=== PATIENT | female | born 1940 | race Caucasian/White ===

== ENCOUNTER 2019-05-20 18:56 | Inpatient (IN) | payer MEDICARE ==
[~2019-05-20] VITALS: Ht 172.7 cm; Wt 79.5 kg
[~2019-05-20 18:56] MED LIST: ASPI-611 PO; BUPR300T54 PO; CITROCAL; DEME300T2; DIPH-423 PO; FERR325T32 PO; FEXO-62 PO; HYDR-4069 PO; LEVO112T5 PO; METO-395 PO; MULT-342 PO; PANT-47 PO; VALS160T30 PO; ZINC10LO5
[2019-05-20 19:29] LABS: BASOPHILS % (AUTO) 0.1 % (0-1); EOSINOPHILS % (AUTO) 0.3 % (0-6); HEMATOCRIT 35.8 % (35.0-45.0); HEMOGLOBIN 11.8 g/dl (12.0-16.0); LYMPHOCYTES # (AUTO) 0.8 X10'3 (1.1-4.8); LYMPHOCYTES % (AUTO) 6.4 % (21-51); MEAN CORPUSCULAR HEMOGLOBIN 31.7 PG (27.0-31.0); MEAN PLATELET VOLUME 6.4 FL (7.4-10.4); MONOCYTES # (AUTO) 0.4 X10'3 (0-0.9); MONOCYTES % (AUTO) 2.9 % (2-12); NEUTROPHILS # (AUTO) 10.9 X10'3 (1.8-7.7); NEUTROPHILS % (AUTO) 90.3 % (42-75); PLATELET COUNT 399 X10'3 (140-440); RED BLOOD COUNT 3.73 X10'6 (4.20-5.60); WHITE BLOOD COUNT 12.1 X10'3 (4.5-11.0)
[2019-05-20 19:41] LABS: PARTIAL THROMBOPLASTIN TIME 25 SECONDS (22-32)
[2019-05-20 19:48] LABS: ALANINE AMINOTRANSFERASE 22 U/L (12-78); ALBUMIN 2.9 G/DL (3.4-5.0); ALKALINE PHOSPHATASE 53 IU/L (46-116); ANION GAP 8 (8-16); ASPARTATE AMINO TRANSFERASE 3 U/L (10-37); BILIRUBIN,TOTAL 0.3 MG/DL (0.1-1.0); BLOOD UREA NITROGEN 14 MG/DL (7-18); BUN/CREATININE RATIO 10.7 (6.6-38.0); CALCIUM 8.2 MG/DL (8.5-10.1); CHLORIDE 96 MMOL/L (99-107); CREATININE 1.31 MG/DL (0.40-0.90); GLUCOSE 209 MG/DL (70-104); POTASSIUM 4.4 MMOL/L (3.5-5.1); SODIUM 129 MMOL/L (135-145); TOTAL CARBON DIOXIDE 24.7 MMOL/L (24-32); TOTAL PROTEIN 5.7 G/DL (6.4-8.2); TROPONIN I < 0.04 NG/ML (0.0-0.05); eGFR 39 ML/MIN
[2019-05-20 19:58] LABS: CLARITY,URINE CLEAR (Clear); COLOR,URINE YELLOW (Yellow); GLUCOSE, URINE NEGATIVE (Neg); KETONES,URINE NEGATIVE (Neg); LEUKOCYTE ESTERASE ,URINE NEGATIVE (Neg); NITRITES, URINE NEGATIVE (Neg); OCCULT BLOOD,URINE NEGATIVE (Neg); PROTEIN,URINE NEGATIVE (Neg); UROBILINOGEN,URINE 0.2 E.U/dL (0.2-1.0)
[2019-05-20 19:59] LABS: UA COLLECTION TYPE STRAIGHT CATH
[2019-05-20] MEDS ORDERED: normal saline 1000ML IV soln IVB ONE (20:10)
[2019-05-20] MEDS ORDERED: magnesium hydroxide 30ml (MOM) UD suspension PO PRN (21:10)
[2019-05-20] MEDS ORDERED: acetaminophen 325mg tablet PO PRN ×2 (21:10)
[2019-05-20] MEDS ORDERED: potassium CL 10mEq/100ml bag 100 ML IV PRN ×2 (21:10)
[2019-05-20] MEDS ORDERED: ondansetron/PF 4mg/2ml inj IV PRN (21:10)
[2019-05-20] MEDS ORDERED: mag hydrox/Alum hydrox/simeth 30ml oral suspension PO PRN (21:10)
[2019-05-20] MEDS ORDERED: potassium Cl 20 mEq SR tablet PO PRN ×2 (21:10)
[2019-05-20] MEDS ORDERED: magnesium 4gm in 100ml NS 100 ML IV PRN (21:10)
[2019-05-20] MEDS ORDERED: magnesium 2GM in 50ml NS 50 ML IV PRN (21:10)
[2019-05-20] MEDS ORDERED: magnesium Cl slow-release 64mg tablet PO PRN (21:10)
[2019-05-20] MEDS ORDERED: SYN0.088T PO (21:49)
[2019-05-20] MEDS ORDERED: CELE-193 PO (21:49)
[2019-05-20 22:15] VITALS: BP 143/74
--- NOTE | 2019-05-20 22:45 | NUR ---
PT IS UP TO FLOOR VIA GURNEY AND ONE ATTENDANT , TRANSFERRED TO BED VIA SLIDE BOARD AND FOUR ATTENDANTS. VSS, PICS TAKEN OF WOUNDS ON BILATERAL FEET, PT IS NOT VERY RECEPTIVE TO STROKE ASSESSMENT QUESTIONS, STATING "NO" WHEN ASKED TO PERFORM TASKS. PT IS CURSING UNDER HER BREATH, ANNOYED FOR HAVING TO BE HERE. WILL CONTINUE BEST WE CAN.
--- NOTE | 2019-05-21 01:25 | NUR ---
pt states that she had a "purse with cats" at admit. There was no purse at arrival, and we called to ED and they did not see a purse. It is likely that it was left at [facility] when the EMS transported.
--- NOTE | 2019-05-21 01:33 | NUR ---
Pt is refusing to have her blood drawn. will not be able to get the Troponins.
--- NOTE | 2019-05-21 05:07 | NUR ---
Pt is refusing to cooperate with the NIH stroke assessment. will continue to try.
[2019-05-21 06:00] VITALS: BP 179/77
--- NOTE | 2019-05-21 06:12 | NUR ---
Report given to LIAN Garsia.
[2019-05-21 06:28] LABS: BASOPHILS % (AUTO) 0.5 % (0-1); EOSINOPHILS # (AUTO) 0.1 X10'3 (0-0.9); EOSINOPHILS % (AUTO) 1.5 % (0-6); HEMATOCRIT 31.9 % (35.0-45.0); LYMPHOCYTES # (AUTO) 1.3 X10'3 (1.1-4.8); MEAN CORPUSCULAR HEMOGLOBIN 32.6 PG (27.0-31.0); MEAN CORPUSCULAR HGB CONC 34.5 g/dL (33.0-36.5); MEAN CORPUSCULAR VOLUME 94.4 FL (78-98); MEAN PLATELET VOLUME 6.2 FL (7.4-10.4); MONOCYTES # (AUTO) 0.9 X10'3 (0-0.9); MONOCYTES % (AUTO) 10.3 % (2-12); NEUTROPHILS % (AUTO) 71.7 % (42-75); PLATELET COUNT 370 X10'3 (140-440); RED BLOOD COUNT 3.38 X10'6 (4.20-5.60); RED CELL DISTRIBUTION WIDTH 13.8 % (11.5-14.5); WHITE BLOOD COUNT 8.4 X10'3 (4.5-11.0)
--- NOTE | 2019-05-21 06:35 | NUR ---
Problems reprioritized. Patient report given, questions answered & plan of care reviewed with Nanette BEAL.
[2019-05-21 06:51] LABS: ALBUMIN 2.8 G/DL (3.4-5.0); ANION GAP 3 (8-16); BLOOD UREA NITROGEN 11 MG/DL (7-18); BUN/CREATININE RATIO 9.5 (6.6-38.0); CALCIUM 8.6 MG/DL (8.5-10.1); CHLORIDE 100 MMOL/L (99-107); CHOL/HDL RATIO 2.3 (0.00-4.99); CHOLESTEROL 196 MG/DL (0-200); CREATININE 1.16 MG/DL (0.40-0.90); GLUCOSE 89 MG/DL (70-104); HDL CHOLESTEROL 84 MG/DL (35-60); LDL CHOLESTEROL 71 MG/DL (50-100); POTASSIUM 4.5 MMOL/L (3.5-5.1); SODIUM 133 MMOL/L (135-145); TOTAL CARBON DIOXIDE 29.9 MMOL/L (24-32); TRIGLYCERIDES 132 MG/DL (20-135); TROPONIN I < 0.04 NG/ML (0.0-0.05); eGFR 45 ML/MIN
[2019-05-21] MEDS: K and/or MAG REPLACEMENT MC SCH ×2 (08:00→20:00)
[2019-05-21] MEDS ORDERED: CITROCAL SCH (08:00)
--- NOTE | 2019-05-21 09:03 | NUR ---
Paged EEG group pager.Rm [phone], Julee. there is an active order for EEG. Thank you.
--- NOTE | 2019-05-21 09:43 | NUR ---
Unable to perform NIH scale as pt refused to demonstrate and said, "I just want to be left alone." Addendum: 05/21/19 at 0944 by Keny Madera RN Amended: Links added.
--- NOTE | 2019-05-21 09:45 | NUR ---
PAGER ID: [phone] MESSAGE: [id number]. Pt is refusing MRI. Sun [phone]
[2019-05-21] MEDS ORDERED: pneumococcal 23-VAL P-sac vacc 25 mcg/0.5ml vial IMVAC ONE (10:00)
--- NOTE | 2019-05-21 10:29 | NUR ---
Paged Speech Therapist regarding BSS. Rm [id number]. Pt has active BSS order, could you please call me. Thank you
[2019-05-21] MEDS: levoTHYROXINE 175mcg tablet PO SCH (11:47)
[2019-05-21] MEDS: pantoprazole 40mg Tablet.DR PO SCH ×2 (11:47→20:55)
[2019-05-21] MEDS: metoprolol succinate 25mg (24-HOUR) SR. Tablet PO SCH (11:47)
[2019-05-21] MEDS: multivitamins, therapeutics tablet PO SCH (11:47)
[2019-05-21] MEDS: hydrALAZINE 25 MG tablet PO SCH ×2 (11:47→20:55)
[2019-05-21] MEDS: losartan 50mg tablet PO SCH (11:47)
[2019-05-21] MEDS: buPROPion SR 150mg tablet PO SCH ×2 (11:48→20:55)
[2019-05-21] MEDS: enoxaparin 40mg/0.4ml syringe SQ SCH (11:49)
--- NOTE | 2019-05-21 12:20 | NUR ---
Patient is refusing MRI and refusing to have new PIV placed at this time. Field Start is patent, will continue to monitor. has been paged regarding the MRI.
--- NOTE | 2019-05-21 12:23 | NUR ---
promotional table spacer PAGER ID: [phone] MESSAGE: Walter [id number]. FYI, Patient still refusing MRI. Sun [phone]
[2019-05-21] MEDS ORDERED: aspirin 325mg tablet PO ONE (15:55)
--- NOTE | 2019-05-21 16:04 | NUR ---
PRESSURE ULCER EDUCATION: DEFINITION: A pressure ulcer is an area of skin that breaks down when you stay in one position too long. The constant pressure against the skin reduces the blood flow to that area and the affected tissue dies. CAUSES: "Being bedridden or in a wheelchair "Fragile skin "Having a chronic condition, such as diabetes or vascular disease "Inability to move certain parts of your body without assistance "Older age "Incontinence of urine or stool SYMPTOMS: "A reddened area that DOES NOT turn white when pressed on - this can be the beginning of a pressure ulcer "A blister, deep sore or a crater - these can be advanced pressure ulcers FIRST AID: "Relieve the pressure on this area "Keep the area clean and dry "Call your primary doctor if you see any of the above symptoms "DO NOT massage the area "DO NOT use a donut shaped or ring shaped pillow- these actually interfere with the blood flow and cause complications PREVENTION: "Check for pressure ulcers everyday "Change position at least every two hours to relieve pressure "Use items that help relieve pressure- pillows, sheepskin, foam padding, and powders. "Keep skin clean and dry "Eat healthy well balanced meals "Exercise daily IF YOU SEE ANY OF THESE SYMPTOMS WHILE IN THE HOSPITAL - TELL YOUR NURSE IMMEDIATELY. IF YOU SEE ANY OF THESE SYMPTOMS WHILE AT HOME OR HAVE ANY QUESTIONS OR CONCERNS ABOUT PRESSURE ULCERS - CALL YOUR PRIMARY DOCTOR IMMEDIATELY. Addendum: 05/21/19 at 1605 by Muna Moise RN Amended: Links added.
--- NOTE | 2019-05-21 16:05 | NUR ---
Spoke with Dr. Melo regarding the patient refusing to have an MRI. Dr. Melo gave verbal orders to start aspirin and atorvastatin. Patient refused after speaking with the MD. Patient is still refusing to have the PIV replaced. Will continue to monitor.
[2019-05-21] MEDS: atorvastatin 20mg tablet PO SCH (16:22)
[2019-05-21 18:00] VITALS: BP 126/50
--- NOTE | 2019-05-21 18:10 | NUR ---
Problems reprioritized. Patient report given, questions answered & plan of care reviewed with Zara BEAL.
[2019-05-21] MEDS: nystatin 15 GM powder TP SCH (20:55)
[2019-05-21 22:00] VITALS: BP 158/56
[2019-05-22 06:00] VITALS: BP 160/61
--- NOTE | 2019-05-22 06:05 | NUR ---
Patient in room ORTHO 4015. I have received report from LIAN Zuñiga and had the opportunity to ask questions and assume patient care. Assessment of patient completed. Patient refusing labs and any treatment. Will let hospitalist know.
--- NOTE | 2019-05-22 06:44 | NUR ---
Problems reprioritized. Patient report given, questions answered & plan of care reviewed with LIAN GOLDEN.
--- NOTE | 2019-05-22 07:14 | NUR ---
PAGER ID: [phone] MESSAGE: LIEN Thompson: Patient Mark Ladd rm 15B, ortho/neuro, refusing labs. Vanessa Jarquin, RN [phone].
[2019-05-22] MEDS: hydrALAZINE 25 MG tablet PO SCH (07:51)
[2019-05-22] MEDS: atorvastatin 20mg tablet PO SCH (07:52)
[2019-05-22] MEDS: losartan 50mg tablet PO SCH (07:52)
[2019-05-22] MEDS: buPROPion SR 150mg tablet PO SCH (07:53)
[2019-05-22] MEDS: multivitamins, therapeutics tablet PO SCH (07:53)
[2019-05-22] MEDS: pantoprazole 40mg Tablet.DR PO SCH (07:53)
[2019-05-22] MEDS: levoTHYROXINE 175mcg tablet PO SCH (07:53)
[2019-05-22] MEDS: metoprolol succinate 25mg (24-HOUR) SR. Tablet PO SCH (07:54)
[2019-05-22] MEDS: nystatin 15 GM powder TP SCH ×2 (07:54→13:00)
[2019-05-22] MEDS: enoxaparin 40mg/0.4ml syringe SQ SCH (07:54)
[2019-05-22] MEDS ORDERED: aspirin 81mg tablet.DR PO SCH (08:00)
[2019-05-22] MEDS: K and/or MAG REPLACEMENT MC SCH (08:00)
[2019-05-22 08:54] LABS: BASOPHILS % (AUTO) 0.6 % (0-1); EOSINOPHILS # (AUTO) 0.2 X10'3 (0-0.9); EOSINOPHILS % (AUTO) 2.4 % (0-6); HEMATOCRIT 35.9 % (35.0-45.0); HEMOGLOBIN 12.2 g/dl (12.0-16.0); LYMPHOCYTES # (AUTO) 1.2 X10'3 (1.1-4.8); LYMPHOCYTES % (AUTO) 14.2 % (21-51); MEAN CORPUSCULAR HGB CONC 34.1 g/dL (33.0-36.5); MEAN CORPUSCULAR VOLUME 93.8 FL (78-98); MEAN PLATELET VOLUME 6.5 FL (7.4-10.4); MONOCYTES # (AUTO) 0.9 X10'3 (0-0.9); MONOCYTES % (AUTO) 10.6 % (2-12); NEUTROPHILS # (AUTO) 6.1 X10'3 (1.8-7.7); NEUTROPHILS % (AUTO) 72.2 % (42-75); PLATELET COUNT 367 X10'3 (140-440); RED BLOOD COUNT 3.82 X10'6 (4.20-5.60); RED CELL DISTRIBUTION WIDTH 13.7 % (11.5-14.5); WHITE BLOOD COUNT 8.5 X10'3 (4.5-11.0)
[2019-05-22 09:06] LABS: ALBUMIN 2.9 G/DL (3.4-5.0); ANION GAP 6 (8-16); BLOOD UREA NITROGEN 13 MG/DL (7-18); BUN/CREATININE RATIO 9.3 (6.6-38.0); CALCIUM 8.9 MG/DL (8.5-10.1); CHLORIDE 99 MMOL/L (99-107); GLUCOSE 79 MG/DL (70-104); MAGNESIUM 1.9 MG/DL (1.5-2.4); SODIUM 132 MMOL/L (135-145); eGFR 36 ML/MIN
[2019-05-22] MEDS ORDERED: ATOR20TA66 PO (13:34)
[2019-05-22] MEDS ORDERED: ASPI-1071 PO (13:34)
--- NOTE | 2019-05-22 13:48 | NUR ---
Since assuming care of this patient, she has refused almost all care which is reflected in the charting. I have spoken with Dr. Melo and he will be discharging this patient back to [facility] where she resides.
--- NOTE | 2019-05-22 14:00 | NUR ---
called report to STEPHANI Pulido at [facility]. All questions answered. New prescriptions to be called into [facility].
--- NOTE | 2019-05-22 14:35 | NUR ---
Patient is discharged. She was taken by w/c [facility] Ivis[facility] Patient was given all instructions and signed instruction sheet and medicare forms. Patient stated that she had no questions. PIV was removed from right AC, cannula was intact and patient tolerated well. Tele box was removed from patient and I contacted Quentin in the Tele box to alert him that patient was discharged. All patient's belongings were accounted for and packed in a patient belonging bag. Patient refused pictures be taken of wounds. New prescriptions called to [facility]. Walked with patient down to [facility] and watched as Ivis put patient in [facility] transport but. Patient was alert and oriented and in stable condition.
== END 2019-05-22 14:30 | disposition home health service (06) | DRG 312 ==
LOC: ER 18:57 → ED HOLD 21:20 → ORTHO 4S 22:05 → OBSVTOIN 05-22 09:00
PROVIDERS: ADMIT Hospitalist; ATTEND Family Medicine
PROC: 4A10X4Z Monitoring of Central Nervous Electrical Activity, External Approach (ICD-10-PCS; principal; 2019-05-20)
DX: R55 Syncope and collapse (principal); G93.40 Encephalopathy, unspecified; E87.1 Hypo-osmolality and hyponatremia; E03.9 Hypothyroidism, unspecified; I10 Essential (primary) hypertension; K21.9 Gastro-esophageal reflux disease without esophagitis; J44.9 Chronic obstructive pulmonary disease, unspecified; Z66 Do not resuscitate; Z87.01 Personal history of pneumonia (recurrent); Z88.8 Allergy status to other drugs, medicaments and biological substances; Z88.1 Allergy status to other antibiotic agents; Z91.040 Latex allergy status; Z88.2 Allergy status to sulfonamides
CPT/HCPCS: 36415; 70450; 71045; 80048; 80053; 80061; 81003; 83735; 84443; 84484; 85025; 85610; 85730; 87081; 92508; 92616; 93005; 93306; 93880; 95816; 97161; 97530; 99291; G0378; J1650

== ENCOUNTER 2020-02-10 20:01 | Observation (INO) | payer MEDICARE ==
[~2020-02-10] VITALS: Ht 172.7 cm; Wt 72.7 kg
[~2020-02-10 20:01] MED LIST changes: +ASPI-1071 PO; -ASPI-611 PO; +ATOR20TA66 PO; -BUPR300T54 PO; +BUPR300T99 PO; -DIPH-423 PO; -FERR325T32 PO; -FEXO-62 PO; -LEVO112T5 PO; +SYN0.088T PO; -ZINC10LO5
[2020-02-10 20:54] LABS: BASOPHILS # (AUTO) 0.1 X10'3 (0-0.2); BASOPHILS % (AUTO) 0.7 % (0-1); EOSINOPHILS # (AUTO) 0.3 X10'3 (0-0.9); EOSINOPHILS % (AUTO) 3.4 % (0-6); HEMATOCRIT 35.8 % (35.0-45.0); HEMOGLOBIN 12.1 g/dl (12.0-16.0); LYMPHOCYTES # (AUTO) 1.3 X10'3 (1.1-4.8); LYMPHOCYTES % (AUTO) 12.4 % (21-51); MEAN CORPUSCULAR HEMOGLOBIN 28.9 PG (27.0-31.0); MEAN CORPUSCULAR HGB CONC 33.7 g/dL (33.0-36.5); MEAN CORPUSCULAR VOLUME 85.7 FL (78-98); MEAN PLATELET VOLUME 6.7 FL (7.4-10.4); MONOCYTES % (AUTO) 9.7 % (2-12); NEUTROPHILS # (AUTO) 7.5 X10'3 (1.8-7.7); NEUTROPHILS % (AUTO) 73.8 % (42-75); PLATELET COUNT 362 X10'3 (140-440); RED BLOOD COUNT 4.18 X10'6 (4.20-5.60); RED CELL DISTRIBUTION WIDTH 14.9 % (11.5-14.5); WHITE BLOOD COUNT 10.2 X10'3 (4.5-11.0)
[2020-02-10 20:59] LABS: PARTIAL THROMBOPLASTIN TIME 25 SECONDS (22-32)
[2020-02-10 21:01] LABS: ALANINE AMINOTRANSFERASE 16 U/L (12-78); ALKALINE PHOSPHATASE 50 IU/L (46-116); ANION GAP 5 (8-16); ASPARTATE AMINO TRANSFERASE 11 U/L (10-37); BILIRUBIN,TOTAL 0.2 MG/DL (0.1-1.0); BLOOD UREA NITROGEN 13 MG/DL (7-18); BUN/CREATININE RATIO 9.5 (6.6-38.0); CHLORIDE 98 MMOL/L (99-107); CREATININE 1.37 MG/DL (0.40-0.90); GLUCOSE 92 MG/DL (70-104); POTASSIUM 4.4 MMOL/L (3.5-5.1); SODIUM 131 MMOL/L (135-145); TOTAL CARBON DIOXIDE 27.9 MMOL/L (24-32); eGFR 37 ML/MIN
[2020-02-10] MEDS ORDERED: BUDE0.5A11 NEB (22:06)
[2020-02-10] MEDS ORDERED: METO25TA6 PO (22:06)
[2020-02-10] MEDS ORDERED: HYDR-4069 PO (22:06)
[2020-02-10] MEDS ORDERED: VALS40TA2 PO (22:06)
[2020-02-10] MEDS ORDERED: TEMA30CA5 PO (22:06)
[2020-02-10] MEDS ORDERED: ARFO15VI NEB (22:06)
[2020-02-10] MEDS ORDERED: CALC-854 PO (22:06)
[2020-02-10] MEDS ORDERED: PANT20TA2 PO (22:06)
[2020-02-10] MEDS ORDERED: NICO-631 TD (22:06)
[2020-02-10] MEDS ORDERED: ASPI81TA52 PO (22:06)
[2020-02-10] MEDS ORDERED: LACT1CAP57 PO (22:06)
[2020-02-10] MEDS ORDERED: ALB0.5UD IH (22:06)
[2020-02-10] MEDS ORDERED: FURO-150 PO (22:06)
[2020-02-10] MEDS ORDERED: MEGE40TA5 PO (22:06)
[2020-02-10] MEDS ORDERED: MONT10TA21 PO (22:06)
[2020-02-10] MEDS ORDERED: MAGN200T8 PO (22:06)
[2020-02-10] MEDS ORDERED: BUPR-114 PO (22:06)
[2020-02-10] MEDS ORDERED: acetaminophen 325mg tablet PO PRN (23:45)
[2020-02-10] MEDS ORDERED: ondansetron/PF 4mg/2ml inj IV PRN (23:45)
[2020-02-10] MEDS ORDERED: magnesium 4gm in 100ml NS 100 ML IV PRN (23:45)
[2020-02-10] MEDS ORDERED: magnesium 2GM in 50ml NS 50 ML IV PRN (23:45)
[2020-02-10] MEDS ORDERED: magnesium Cl slow-release 64mg tablet PO PRN (23:45)
[2020-02-10] MEDS ORDERED: mag hydrox/Alum hydrox/simeth 30ml oral suspension PO PRN (23:45)
[2020-02-10] MEDS ORDERED: potassium CL 10mEq/100ml bag 100 ML IV PRN ×2 (23:45)
[2020-02-10] MEDS ORDERED: potassium Cl 20 mEq SR tablet PO PRN ×2 (23:45)
[2020-02-10] MEDS ORDERED: magnesium hydroxide 30ml (MOM) UD suspension PO PRN (23:45)
[2020-02-11 01:05] VITALS: BP 147/58
--- NOTE | 2020-02-11 01:05 | NUR ---
Patient in room PCU 3016. I have received report from Francisco Javier BEAL in the ER and had the opportunity to ask questions and assume patient care. Patient was transported by rney and was stable at the time of transfer.
[2020-02-11] MEDS: albuterol 2.5 MG/3 ML nebule NEB SCH ×2 (03:00→08:50)
[2020-02-11 06:10] LABS: BASOPHILS % (AUTO) 0.5 % (0-1); EOSINOPHILS # (AUTO) 0.3 X10'3 (0-0.9); EOSINOPHILS % (AUTO) 2.9 % (0-6); HEMATOCRIT 39.9 % (35.0-45.0); HEMOGLOBIN 13.4 g/dl (12.0-16.0); LYMPHOCYTES # (AUTO) 1.5 X10'3 (1.1-4.8); LYMPHOCYTES % (AUTO) 15.3 % (21-51); MEAN CORPUSCULAR HEMOGLOBIN 28.4 PG (27.0-31.0); MEAN CORPUSCULAR HGB CONC 33.5 g/dL (33.0-36.5); MEAN CORPUSCULAR VOLUME 84.9 FL (78-98); MEAN PLATELET VOLUME 6.7 FL (7.4-10.4); MONOCYTES # (AUTO) 1.1 X10'3 (0-0.9); MONOCYTES % (AUTO) 11.7 % (2-12); NEUTROPHILS # (AUTO) 6.6 X10'3 (1.8-7.7); NEUTROPHILS % (AUTO) 69.6 % (42-75); PLATELET COUNT 361 X10'3 (140-440); RED CELL DISTRIBUTION WIDTH 15.1 % (11.5-14.5); WHITE BLOOD COUNT 9.5 X10'3 (4.5-11.0)
[2020-02-11 06:11] LABS: ALANINE AMINOTRANSFERASE 17 U/L (12-78); ALBUMIN 3.2 G/DL (3.4-5.0); ALKALINE PHOSPHATASE 48 IU/L (46-116); ANION GAP 7 (8-16); ASPARTATE AMINO TRANSFERASE 18 U/L (10-37); BILIRUBIN,TOTAL 0.3 MG/DL (0.1-1.0); BLOOD UREA NITROGEN 12 MG/DL (7-18); BUN/CREATININE RATIO 9.5 (6.6-38.0); CALCIUM 9.3 MG/DL (8.5-10.1); CHLORIDE 100 MMOL/L (99-107); CREATININE 1.26 MG/DL (0.40-0.90); GLUCOSE 82 MG/DL (70-104); SODIUM 134 MMOL/L (135-145); TOTAL CARBON DIOXIDE 27.3 MMOL/L (24-32); TOTAL PROTEIN 6.3 G/DL (6.4-8.2); eGFR 41 ML/MIN
[2020-02-11 06:13] LABS: MAGNESIUM 2.1 MG/DL (1.5-2.4); POTASSIUM 4.8 MMOL/L (3.5-5.1)
--- NOTE | 2020-02-11 06:44 | NUR ---
Patient in room PCU 3016. I have received report from LIAN Anthony and had the opportunity to ask questions and assume patient care. Pt sleeping comfortably at change of shift.
[2020-02-11] MEDS ORDERED: lactobacillus rhamnosus 10,000 MMU CELLS/CAPSULE PO SCH (08:00)
[2020-02-11] MEDS ORDERED: levoTHYROXINE 175mcg tablet PO SCH (08:00)
[2020-02-11] MEDS ORDERED: aspirin 81mg tablet.DR PO SCH (08:00)
[2020-02-11] MEDS ORDERED: furosemide 20MG tablet PO SCH (08:00)
[2020-02-11] MEDS ORDERED: losartan 50mg tablet PO SCH (08:00)
[2020-02-11] MEDS ORDERED: metoprolol tartrate 25mg tablet PO SCH (08:00)
[2020-02-11] MEDS ORDERED: nicotine 14mg patch - 24hr TD SCH (08:00)
[2020-02-11] MEDS ORDERED: K and/or MAG REPLACEMENT MC SCH (08:00)
[2020-02-11] MEDS ORDERED: hydrALAZINE 25 MG tablet PO SCH (08:00)
[2020-02-11] MEDS ORDERED: budesonide 0.5mg/2ml UD nebule IH SCH (09:00)
[2020-02-11] MEDS ORDERED: LEVO175T7 PO (09:15)
[2020-02-11] MEDS ORDERED: BUPR-344 PO (09:15)
[2020-02-11] MEDS ORDERED: TEMA15CA5 PO (09:15)
[2020-02-11] MEDS ORDERED: DEMECLOCYCLINE PO (09:15)
[2020-02-11 10:21] VITALS: BP 153/61
[2020-02-11] MEDS ORDERED: normal saline 1000ml 1,000 ML IV SCH (10:25)
[2020-02-11] MEDS ORDERED: buPROPion SR 150mg tablet PO SCH (10:26)
[2020-02-11 11:00] VITALS: BP 122/58
--- NOTE | 2020-02-11 13:41 | NUR ---
Paged Dr Melo, informing him of CT resulting and Raquel said Neena Rod[facility]guez can pick pt up at 3pm. PAGER ID: [phone] MESSAGE: Fallon Costa [id number] CT of head has resulted. Per Raquel, Neena Rodríguez can pick pt up at 3pm if you discharge. Thanks Samantha Hugo [phone]
--- NOTE | 2020-02-11 16:00 | NUR ---
Patient stable for discharge per MD orders. Called report to Antoinette at [facility], gave her all instructions including continuing all medications and to follow up with primary care physician. All belongings were collected and sent with patient. PIV was discontinued, cannula intact. Tele discontinued, telecom sales consultant notified. [facility]eled pt to [facility] personnel picked patient up.
[2020-02-11] MEDS ORDERED: DEMECLOCYCLINE 300 MG PO SCH (20:00)
[2020-02-11] MEDS ORDERED: temazepam 15mg capsule PO SCH (21:00)
[2020-02-12] MEDS ORDERED: buPROPion SR 150mg tablet PO SCH (08:00)
[2020-02-12] MEDS ORDERED: levoTHYROXINE 175mcg tablet PO SCH (08:00)
== END 2020-02-11 15:59 | disposition home or self-care (01) ==
LOC: ER 20:01 → ED HOLD 23:41 → PCU 3S 02-11 01:00
PROVIDERS: ADMIT Family Medicine; ATTEND Internal Medicine
DX: R55 Syncope and collapse (principal); R41.82 Altered mental status, unspecified; J44.9 Chronic obstructive pulmonary disease, unspecified; K21.9 Gastro-esophageal reflux disease without esophagitis; E03.9 Hypothyroidism, unspecified; F03.90 Unspecified dementia, unspecified severity, without behavioral disturbance, psychotic disturbance, mood disturbance, and anxiety; I10 Essential (primary) hypertension; Z79.82 Long term (current) use of aspirin; Z79.51 Long term (current) use of inhaled steroids; Z79.899 Other long term (current) drug therapy; Z88.1 Allergy status to other antibiotic agents; Z88.2 Allergy status to sulfonamides; Z88.8 Allergy status to other drugs, medicaments and biological substances; Z91.040 Latex allergy status
CPT/HCPCS: 36415; 70450; 71045; 80053; 83735; 83880; 84443; 84484; 85025; 85610; 85730; 87081; 93005; 94640; 94760; 96360; 96361; 97110; 97161; 97530; 99285; G0378; J7030; J7626